=== PATIENT | female | born 1970 | race Caucasian/White ===

== ENCOUNTER 2017-11-07 17:04 | Emergency (ER) | payer OTHER ==
[~2017-11-07] VITALS: Ht 167.6 cm; Wt 84.4 kg
[2017-11-07] MEDS ORDERED: ASA325 MG PO (17:17)
[2017-11-07] MEDS ORDERED: LITHIUM CARBON300 MG PO (17:17)
[2017-11-07] MEDS ORDERED: LEVOXYL25 MCG PO (17:18)
== END 2017-11-07 19:29 | disposition home or self-care (01) ==
LOC: ER 17:04
DX: S01.01XA Laceration without foreign body of scalp, initial encounter (principal); W45.8XXA Other foreign body or object entering through skin, initial encounter; Y93.89 Activity, other specified; Y92.89 Other specified places as the place of occurrence of the external cause; Y99.8 Other external cause status